=== PATIENT | female | born 1975 | race Caucasian/White ===

== ENCOUNTER 2022-11-21 08:39 | Observation (INO) ==
--- NOTE | 2022-11-02 09:44 | PAT Medication Instructions ---
Medication Instructions Date of Service November 02, 2022 Home Medications ascorbic acid (vitamin C) 1,000 mg tablet (Vitamin C) 1 g PO QAM DO NOT take the morning of surgery ascorbic acid (vitamin C) 1,000 mg tablet (Vitamin C) 1 g PO QAM OTHERWISE NOTHING TO EAT OR DRINK AFTER MIDNIGHT Other Notes If you have any questions please call us at [phone] or [phone] or [phone] or [phone]
--- NOTE | 2022-11-07 11:16 | Anesthesiology Consultation ---
Date of Service November 07, 2022 Assessment & Plan (1) Encounter for pre-operative examination: Chart Review Chart Review: Acceptable Risk for Surgery and Patient seen in Pre Admission Testing - Check test AM DOS Per PAT appt on 11/07/22, patient denies any recent travel or large group activities. Pt is vaccinated for Covid. Will leave to surgeon's discretion if preop Covid testing needed. Educated on importance of using Covid precautions one week prior to surgery Teaching & Discussion Pre-Anesthesia Teaching/Discussion Notes: Instructed NPO after midnight before surgery,except medications with 15 cc of water. Medication instructions provided according to the PAT guidelines. History Surgery Operation Date: 11/21/22 07:45 Proposed Procedures p L5-S1 Decompression, Possible Fusion, Spinal Cord Monitoring - Fernando Beckham DO Height/Weight Height: 5 ft 1 in Weight: 57.5 kg Allergies Allergy/AdvReac Type Severity Reaction Status Date / Time No Known Allergies Allergy Verified 10/27/22 15:37 Medications Home Medications Medication Instructions Recorded Confirmed Last Taken ascorbic acid (vitamin C) 1,000 mg 1 g PO QAM 10/27/22 10/27/22 Unknown tablet (Vitamin C) Past Medical History Medical History Fatty liver Lumbar disc herniation Mild intermittent asthma without complication Well controlled and stable - no inhalers needed Thyroid disease On Methimazole in the past (no current medications) Following with endocrinology- Graves hyperthyroidism TSH and FREE T4 WNL 06/2022 Exercise / Class Metabolic Activity II 4-5 Yardwork/Stairs/Walk up hill (one flight of stairs - no chest pain or SOB ) Past Family History Family History Mother Diabetes Hypertension Gallbladder cancer Father Hypertension Sister No problems noted. Daughter No problems noted. Daughter No problems noted. Other No family history of adverse response to anesthesia Denies family history of Ovarian cancer Prostate cancer Myocardial infarction Breast cancer Colorectal cancer Past Surgical History Surgical History History of appendectomy History of colonoscopy History of right breast biopsy benign calcification Past Anesthesia History No Hx of Anesthesia Complications and No Family Hx of Anesthesia Complications History of PONV No Hx of PONV and No Hx of Motion Sickness Social History Smoking Status: Never smoker Do You Dip or Chew Tobacco: No Hx Alcohol Use: No Hx Substance Use: No substance use type: does not use Review of Systems Hx of snoring (mild)- no hx of sleep study Patient denies chest pain, shortness of breath, dyspnea on exertion, reflux, cough, wheezing, palpitations. No hx of seizures, stroke, MO. No hx of blood clots or blood transfusions Physical Exam Vital Signs VITALS BP 136/85 P 91 TEMP 97.9 SP02 98% RESP 16 Constitutional no acute distress ENMT Mouth: no TMJ clicking Thyromental Distance: > or= 3.5 Finger Breadths (3.5) Mallampati Class: III Neck + limited neck extension Respiratory normal respiratory effort; no respiratory distress Auscultation: lungs clear to auscultation bilaterally; no wheezes Cardiovascular Rate/Rhythm: regular rate and regular rhythm Heart Sounds: no murmur Vessels: no carotid bruit Musculoskeletal Spine: + pain with cervical ROM Extremities: extremities normal to inspection Psychiatric Orientation: alert Lab Results Anesthesia Preop Results Results Anesthesia Widget: WBC 5.21 K/ul (4.8-10.8) 11/07/22 Hgb 13.9 g/dl (12.0-16.0) 11/07/22 Hct 40.2 % (37.0-47.0) 11/07/22 Plt 209 K/uL (130-400) 11/07/22 Na 138 mmol/L (136-145) 11/07/22 K 4.2 mmol/L (3.5-5.1) 11/07/22 Cl 103 mmol/L (98-107) 11/07/22 CO2 28 mmol/L (21-32) 11/07/22 BUN 14 mg/dl (6-23) 11/07/22 Creat 0.61 mg/dl (0.6-1.2) 11/07/22 Glucose Level 98 mg/dl (70-99(Fasting)) 11/07/22 PT 10.8 Seconds (9.0-12.0) 11/07/22 PTT 28.5 Seconds (21.0-31.0) 11/07/22 INR 1.0 (0.9-1.1) 11/07/22 Urine Color Yellow 11/07/22 Urine Appearance Clear (Clear) 11/07/22 Urine pH 7.5 (4.5-7.5) 11/07/22 Urine Specific [place] 1.014 (1.000-1.030) 11/07/22 Urine Protein Negative (Negative) 11/07/22 Urine Glucose (UA) Negative (Negative) 11/07/22 Urine Ketones Negative (Negative) 11/07/22 Urine Blood Negative (Negative) 11/07/22 Urine Nitrite Negative (Negative) 11/07/22 Urine Bilirubin Negative (Negative) 11/07/22 Urine Urobilinogen Negative (Negative) 11/07/22 Urine Leukocyte Esterase Negative (Negative) 11/07/22 Blood Type A Positive 11/07/22 Antibody Screen NEGATIVE 11/07/22 Testing Electrocardiogram Date: 11/07/22 Findings: + NSR @ (85bpm ) Normal EKG per cardio Chest X-Ray Date: 11/07/22 Findings: + NAD COVID-19 Risk Screen Screening Information COVID-19 Screen Date: 11/07/22 Exposure 21 Days Family/Household +COVID Last 21 Days: No Exposure 10 Days Any COVID Exposure Last 10 Days: No Symptoms Last 10 Days Experienced COVID Sx Last 10 Days: No + COVID 0-90 Days COVID + in Last 0-90 Days: No Risk Plan COVID Risk Plan: No Risk Identified Patient Education COVID Preop Screening Education Complete: Yes
[~2022-11-21 08:39] MED LIST: ACETAMINOPHEN 500 MG TAB PO SCH; CeleBREX 200 MG CAP PO SCH; DEXAMETHASONE SOD INJ 4 MG/ML VIAL ONE; GABAPENTIN 300 MG CAP PO SCH; LIDOCAINE 2% MPF LOCAL 5 ML VIAL ONE; LR 15ML/HR IV SCH; MIDAZOLAM HCL 1 MG/ML 2ML VIAL ONE; ONDANSETRON INJ 2 MG/ML 2 ML VIAL ONE; PROPOFOL IV EMULSION 10 MG/ML 20 ML VIAL IV ONE; ROCURONIUM BROMIDE 10 MG/ML 5 ML VIAL IV ONE; ceFAZolin 2000MG 2,000 MG/15 ML SYR IV SCH; fentaNYL citrate PF 100 MCG/2 ML VIAL ONE
[2022-11-21] MEDS ORDERED: ATROPINE SULFATE 0.1 MG/ML 10ML SYR IV PRN (09:29)
[2022-11-21] MEDS ORDERED: ONDANSETRON INJ 2 MG/ML 2 ML VIAL IV PRN ×2 (09:29→13:19)
[2022-11-21] MEDS ORDERED: fentaNYL citrate PF 100 MCG/2 ML VIAL IV PRN (09:29)
[2022-11-21] MEDS ORDERED: HYDROmorphone INJ 1 MG/ML SYRINGE IV PRN ×2 (09:29→13:19)
[2022-11-21] MEDS ORDERED: ePHEDrine sulfate 50 MG/ML AMP IV PRN (09:29)
--- NOTE | 2022-11-21 09:52 | History & Physical Bridge Note ---
Date of Service November 21, 2022 History & Physical Bridge Note I have examined the patient, reviewed the History & Physical and in the interval since the performance of the History & Physical I have noted the following changes of clinical significance: no changes noted
--- NOTE | 2022-11-21 09:52 | History & Physical Report ---
Date of Service November 21, 2022 Assessment & Plan (1) Lumbar disc herniation: Plan: L5-S1 decompression possible fusion History of Present Illness Chief Complaint: Back and leg pain Primary Care Provider: Evelyne Bloom MD This is a 47-year-old female who presents with chronic persistent back and leg pain after failing course of nonoperative care she is here for surgical intervention. Allergies Allergy/AdvReac Type Severity Reaction Status Date / Time No Known Allergies Allergy Verified 11/21/22 09:00 Home Medications Medication Instructions Recorded Confirmed Type ascorbic acid (vitamin C) 1,000 mg 1 g PO QAM 10/27/22 11/21/22 History tablet (Vitamin C) Past Med/Surg History Medical History Fatty liver Lumbar disc herniation Mild intermittent asthma without complication Well controlled and stable - no inhalers needed Thyroid disease On Methimazole in the past (no current medications) Following with endocrinology- Graves hyperthyroidism TSH and FREE T4 WNL 06/2022 Surgical History History of appendectomy History of colonoscopy History of right breast biopsy benign calcification Family History Mother Diabetes Hypertension Gallbladder cancer Father Hypertension Sister No problems noted. Daughter No problems noted. Daughter No problems noted. Other No family history of adverse response to anesthesia Denies family history of Ovarian cancer Prostate cancer Myocardial infarction Breast cancer Colorectal cancer Social History Smoking Status: Never smoker Second Hand Exposure: No; Do You Dip or Chew Tobacco: No; Hx Alcohol Use: No Hx Substance Use: No Preferred Language: [place] Communication Ability: Effective Communication Ability Comment: Pt speaks japanese well Visual Impairment: No Limitations Hearing Ability: Normal Supervisor [employer] Required: No Beliefs That Will Affect Care: None marital status: Current Living Situation: Spouse and Family Current Living Situation Comment: Lives with and 2 daughters current occupational status: employed Feels Safe at Home: Yes Dental Care, Regularly: Yes Physical Activity Frequency: 1-2 Times per Week Assistive Devices: None Physical Exam Physical Exam: Patient is alert and oriented Heart regular rhythm Lungs clear Results & Data Results & Data Vital Signs (Past 12 Hours) Vital Signs Temp Pulse Resp BP Pulse Ox O2 Del Method 11/21/22 09:06 36.7 C 93 H 20 151/89 H 98 Room Air
[2022-11-21] MEDS ORDERED: ceFAZolin 330 MG/ML 1 GM VIAL ONE (10:02)
[2022-11-21] MEDS ORDERED: BUPIVACAINE/EPINEPHRINE 0.25% 1:200,000 30 ML VIAL ONE (10:02)
[2022-11-21] MEDS ORDERED: fentaNYL citrate PF 100 MCG/2 ML VIAL ONE (10:49)
[2022-11-21] MEDS ORDERED: FLOSEAL HEMOSTATIC MATRIX 10ML TOP ONE (11:01)
[2022-11-21] MEDS ORDERED: SURGICEL ABSORB HEMOSTAT 2IN X 14IN TOP ONE (11:43)
--- NOTE | 2022-11-21 11:52 | Operative Report ---
Post Operative Report Pre & Post Diagnosis Operation Date: 11/21/22 10:05 Pre-Op Diagnosis: (1) Lumbar disc herniation Post-Op Diagnosis: (1) Lumbar disc herniation I identified the patient and participated in the time-out.: Yes Procedure Operation Date: 11/21/22 10:05 Actual Procedures #1 lumbar decompression bilateral medial facetectomies and foraminotomies L5-S1. #2 posterior spinal fusion L5-S1. #3 placed posterior instrumentation L5-S1. #4 interbody fusion L5-S1. #5 placement of Spira 12 x 26 mm at L5-S1. #6 placement locally harvested morselized autograft in the posterior gutters. #7 placement of I factor amount of the talus in the interbody space and posterior lateral gutters. Surgeon Fernando Beckham, Adaptive Physical Education Teacher Na Calloway Estimated Blood Loss 50 Findings Consistent with Post-Op Diagnosis Specimens None Indications This is a 47-year-old female who presents above-mentioned diagnosis after failing course of nonoperative care she is here for surgical invention. Description of Procedure Patient was met with identified informed consent obtained. Patient was then taken to the operative suite underwent ablation placed in a prone position on the [facility] top Tam frame. All bony promises well-padded eyes inspected to ensure no external pressure placed upon the. This point the lumbar spine was prepped and draped in a sterile fashion. Sharp dissection with the assistance of Bovie cautery to form down to and exposing the lamina of L5. From caudal to cephalad fashion complete laminectomy of L5 was performed including bilateral medial facetectomies and foraminotomies addressing significant stenosis particularly along the right neuroforamen requiring complete facetectomy to adequately decompress the nerve roots. Subsequently fusion was necessary in light of the iatrogenic instability and pedicle screws were placed in L5 and S1 levels bilaterally with assistance of fluoroscopy. By way of a transforaminal approach and right complete discectomy of L5-S1 was performed endplates curetted to subcortical mean bone and a 12 x 26 mm Spira cage filled with I factor tapped position. The rods then locked in final position bilaterally. The transverse processes of L5 and sacral ala burred to subcortical bleeding bone. I factor amount of the test and locally harvested morselized graft was placed in the posterior gutters. 15 round TEMI drain inserted. The incision was then closed with 1 Vicryl the fascia 2-0 Vicryl subcutaneously and 4 Monocryl for final skin closure. Steri-Strip sterile dressings placed. Patient awakened taken to PACU stable condition. Please note spinal cord monitoring was utilized at the procedure no changes noted. Lastly Na Calloway is present at the entire surgery and while the patient positioning complex portions of the surgery and final skin closure. I attest to the content of the Intraoperative Record and any orders documented therein. Any exceptions are noted below.
--- NOTE | 2022-11-21 12:55 | Anesthesiology Progress Note ---
Date of Service November 21, 2022 Anesthesia Post Procedure Vital Signs Vital Signs: Temp Pulse Resp BP Pulse Ox O2 Del Method O2 Flow Rate 11/21/22 12:50 84 14 113/76 98 Room Air 11/21/22 12:40 75 14 106/69 96 Room Air 11/21/22 12:30 79 14 109/70 97 Room Air 11/21/22 12:20 78 15 110/74 100 Oxymask 6 11/21/22 12:13 97.0 F L 98 H 12 122/71 99 Oxymask 6 11/21/22 09:06 98.1 F 93 H 20 151/89 H 98 Room Air Pain Intensity Lower Back: Pain Intensity: 6 Transfer of Care Handoff Completed per policy Notes Mental Status: alert / awake / arousable and participated in evaluation Patient Amnestic to Procedure: Yes Nausea / Vomiting: adequately controlled Pain: adequately controlled Airway Patency, RR, SpO2: stable & adequate BP & HR: stable & adequate Hydration State: stable & adequate Anesthetic Complications: no major complications apparent and Pt Satisfied with anesthetic care
--- NOTE | 2022-11-21 13:00 | Fluoroscopy Report ---
INTRAOPERATIVE RADIOGRAPHS CLINICAL HISTORY: L5-S1 spinal fusion. Fluoro time: 27 seconds Ka,r: 15.5 mGy FINDINGS: 2 spot fluoroscopic views of the lumbar spine are presented. There has been discectomy at L 5-S1 with laminectomy and posterior fusion at this level. Interpedicular screws are in place. The ort hopedic hardware appears intact. IMPRESSION: Intraoperative images from L5-S1 spinal fusion as above. Electronically signed by: Lakhwinder Rollins M.D. 11/21/2022 12:59 PM
[2022-11-21] MEDS ORDERED: hydrOXYzine HCl 25 MG TAB PO PRN (13:19)
[2022-11-21] MEDS ORDERED: ONDANSETRON 4 MG OD TAB PO PRN (13:19)
[2022-11-21] MEDS ORDERED: HYDROmorphone INJ 0.5 MG/0.5 ML SYR IV PRN (13:19)
[2022-11-21] MEDS ORDERED: oxyCODONE HCL IR 5 MG TAB (IMMEDIATE RELEASE) PO PRN (13:19)
[2022-11-21] MEDS ORDERED: FAMOTIDINE 20 MG TAB PO PRN (13:19)
[2022-11-21] MEDS ORDERED: DO NOT ADMINISTER FLU VACCINE PRN (13:19)
[2022-11-21] MEDS ORDERED: LORazepam 0.5 MG TAB PO PRN (13:19)
[2022-11-21] MEDS ORDERED: bisacodyL 10 MG SUPP PR PRN (13:19)
[2022-11-21] MEDS ORDERED: PROMETHAZINE HCL 12.5 MG in SODIUM CHLORIDE 0.9% 50 ML IV PRN (13:19)
[2022-11-21] MEDS ORDERED: DO NOT ADMINISTER PNEUMOCOCCAL VACCINE PRN (13:19)
[2022-11-21] MEDS ORDERED: ALUMINUM/MAGNESIUM SUSP 30 ML UDC PO PRN (13:19)
[2022-11-21] MEDS ORDERED: traMADol HCL 50 MG TABLET PO PRN (13:19)
[2022-11-21] MEDS ORDERED: LORazepam 2 MG/1 ML VIAL IV PRN (13:19)
[2022-11-21] MEDS ORDERED: SOD PHOSPHATE/SOD BIPHOSPHATE ENEMA 132 ML BTL PR PRN (13:19)
[2022-11-21] MEDS ORDERED: diphenhydrAMINE Capsule 25 MG CAP PO PRN (13:19)
[2022-11-21] MEDS ORDERED: NALOXONE HCL 0.4 MG/1 ML VIAL/CARP IV PRN (13:19)
[2022-11-21] MEDS ORDERED: MAGNESIUM HYDROXIDE SUSP 30 ML UDC PO PRN (13:19)
[2022-11-21] MEDS ORDERED: ACETAMINOPHEN 1,000 MG/100 ML VIAL IV PRN (13:19)
[2022-11-21] MEDS ORDERED: METOCLOPRAMIDE HCL INJ 5 MG/ML 2 ML VIAL IV PRN (13:19)
[2022-11-21] MEDS: LACTATED RINGER'S 1,000 ML IV SCH ×2 (14:08→23:19)
[2022-11-21] MEDS: ceFAZolin 1000MG 1,000 MG/7.5 ML SYR IV SCH (17:43)
[2022-11-21] MEDS: DOCUSATE SODIUM/SENNA 50/8.6MG TAB PO SCH (20:57)
[2022-11-22] MEDS: ceFAZolin 1000MG 1,000 MG/7.5 ML SYR IV SCH (01:05)
[2022-11-22] MEDS: ACETAMINOPHEN 500 MG TAB PO PRN ×2 (04:48→14:06)
[2022-11-22] MEDS: POLYETHYLENE (MIRALAX) 17 GM PACK PO SCH ×3 (05:24→17:03)
[2022-11-22 07:24] LABS: BUN Creatinine Ratio 20.3 (10-20); Calcium 8.7 mg/dl (8.6-10.3); Creatinine Clr Calc Pharmacy 94.2 ml/min; Est GFR (African American) 124.7 ml/min; Est GFR (Non-African American) 107.6 ml/min; Potassium 3.7 mmol/L (3.5-5.1)
[2022-11-22] MEDS: dexAMETHasone 6 MG in SYRINGE 0 ML IV SCH (09:01)
[2022-11-22 10:32] LABS: Basophils # (auto) 0.02 K/uL (0-0.2); Basophils % (auto) 0.2 %; Hematocrit (blood only) 32.6 % (37.0-47.0); Hemoglobin 11.3 g/dl (12.0-16.0); Immature Granulocytes # (auto) 0.04 K/uL (0.01-0.20); Immature Granulocytes % (auto) 0.3 %; Lymphocytes # (auto) 1.42 K/uL (1.2-3.4); Lymphocytes % (auto) 12.3 %; Mean Corpuscular Hemoglobin 31.6 pg (25.0-34.0); Mean Corpuscular Hgb Conc 34.7 g/dL (32.0-36.0); Mean Corpuscular Volume 91.1 fL (80.0-100.0); Mean Platelet Volume 10.8 fL (9.4-12.4); Monocytes % (auto) 7.8 %; Neutrophils # (auto) 9.13 K/uL (1.40-6.50); Neutrophils % (auto) 79.4 %; Platelet Count 188 K/uL (130-400); RDW Coefficient of Variation 12.1 % (11.5-14.5); RDW Standard Deviation 40.2 fL (36.4-46.3); Red Blood Count 3.58 M/uL (4.20-5.40); White Blood Count 11.51 K/ul (4.8-10.8)
--- NOTE | 2022-11-22 12:56 | Orthopedic Progress Note ---
Date of Service November 22, 2022 Assessment & Plan (1) Lumbar disc herniation: Plan: At this time we will continue physical therapy monitor TEMI output hopefully discharge home in the next few days. Admission and Anticipated Discharge Date Admission Date: November 21, 2022 Subjective Back pain controlled leg pain markedly improved Physical Exam Physical Exam: Patient is in bed. She is comfortable. Is good strength testing. Results & Data Vital Signs (Past 12 Hours) Vital Signs Temp Pulse Pulse Pulse Resp BP BP 11/22/22 11:30 36.7 C 88 16 117/74 11/22/22 07:23 36.5 C 93 H 16 118/73 11/22/22 02:56 36.7 C 100 H 16 123/74 Pulse Ox O2 Del Method 11/22/22 11:30 97 Room Air 11/22/22 07:23 96 Room Air 11/22/22 02:56 97 Room Air
[2022-11-22] MEDS: DOCUSATE SODIUM/SENNA 50/8.6MG TAB PO SCH (21:15)
[2022-11-23] MEDS: POLYETHYLENE (MIRALAX) 17 GM PACK PO SCH ×2 (00:58→06:09)
[2022-11-23] MEDS: ACETAMINOPHEN 500 MG TAB PO PRN (00:58)
[2022-11-23] MEDS: dexAMETHasone 6 MG in SYRINGE 0 ML IV SCH (08:13)
--- NOTE | 2022-11-23 10:52 | Discharge Summary ---
Date of Service November 23, 2022 Admission HPI Per Admitting Provider This is a 47-year-old female who presents with chronic persistent back and leg pain after failing course of nonoperative care she is here for surgical intervention. Principal Diagnosis Lumbar stenosis with radiculopathy Discharge Data Allergies Allergy/AdvReac Type Severity Reaction Status Date / Time No Known Allergies Allergy Verified 11/21/22 09:00 Procedures Performed Operation Date: 11/21/22 10:05 Actual Procedures p L5-S1 Decompression Fusion, Spinal Cord Monitoring(Not Applicable) - Fernando Beckham DO Ordered Studies 11/21/22 10:05 FL lumbar spine 2-3V Routine Hospital Course (1) Lumbar disc herniation: Patient underwent lumbar decompression fusion tolerated this well and taken to orthopedic for postoperative. Postop day 1 she was up and ambulating progress postop day #2. TEMI drain decreasing appropriately. Pain well controlled. Extra strength testing. Separately discharged home. Discharge orders instructions found in chart for further review. Total Time Total Time Spent Total Time Spent (In Minutes): 20 minutes Discharge Plan Discharge Items Patient Disposition: Home - Self-Care Reason For Visit: Radiculopathy, Lumbar REgion Discharge Diagnosis: lumbar radiculopathy Activity: As commented below Non-emergency contact: Primary Care Provider Call non-emergency contact if: you have any medication questions Follow-up/Referrals: Evelyne Bloom MD [Primary Care Provider] - Diet: Regular Addtl Attending Provider Instructions: ACTIVITY RECOMMENDATIONS: SELF CARE INSTRUCTIONS AFTER THORACIC/LUMBAR FUSIONS 1. You may walk to your tolerance. It is good exercise for your legs and back. Expect some back and intermittent leg aches and pains. 2. You may perform "counter-top" level activities (make a sandwich, toñito with a project, etc.). 3. No bending or lifting of more than 10 pounds or back twisting of any nature (roll like a log when turning in bed). 4. You may ride in a car for 20-30 minutes at a time. No driving until after your first visit with your doctor. 5. Frequent changes of position and restricting sitting to 30 minutes at a time will help limit the amount of back spasms and stiffness you may experience. 6. You may discontinue the use of ambulatory aids (cane, crutches, etc.) once your strength and confidence allow. 7. You may donor services coordinator the shower and let water strike your incision when you arrive home at least once daily. Do not take a tub bath, sit in a hot tub or go into a swimming pool until after your first recheck in the office. SPECIAL CARE INSTRUCTIONS: VERY IMPORTANT TO READ AND REVIEW A. Your surgical incision has been closed with a cosmetic suture under the skin that will dissolve in about 6 weeks. In 14 days, you can use a pair of clean scissors and cut the suture that is left outside of the skin at the ends of your incision. 1. The small skin tapes can be removed 7 days after surgery if they have not fallen off by that point. 2. You may keep the wound open to air as much as possible to promote healing after post-op day number 5 unless told otherwise by your doctor. 3. If you think the wound looks like it is becoming infected (redness or worsening drainage) and/or you are experiencing fever, chill or worsening back pain and muscle spasms, contact the office so that we may evaluate you as soon as possible. B. Complications are uncommon, but please contact us if you have any signs or symptoms of: 1. wound infection (fever higher than 102.5 degrees F, redness, separation of wound, drainage, or increasing pain from the incision) 2. blood clots in legs (pain, swelling, redness and warmth in legs) 3. urinary tract infection (fever higher than 102.5 degrees F, burning upon urination or increased frequency of urination) 4. nerve problems (inability to walk on your toes or heels, numbness, loss of bowel or bladder control) 5. any other symptoms that concern you C. Please call the office at if you have any concerns or questions about your operation or recovery. D. No smoking! Smoking drastically decreases the chance of a solid fusion. E. Do not take any anti-inflammatory medications (Indocin, Advil, Motrin, Aspirin, Naprosyn, etc.) as these may inhibit the chance of a solid fusion. Tylenol is okay to take for pain. MANAGING PAIN AFTER SPINAL SURGERY 1. Narcotic medication is intended for short-term use and will be provided for surgical pain. Surgical pain usually lasts for a period of 4-6 weeks. Narcotic medication includes Percocet, Vicodin, Darvocet, Tylenol #3 or Lortab. 2. Longer-term pain is more appropriately treated with non-narcotic medication such as Tylenol ES. 3. Muscle spasm is not appropriately treated with narcotics. Muscle relaxers such as Soma, Flexeril or Skelaxin can be used along with Tylenol ES. 4. Remember that we all live with some "aches and pains". This is not unusual or uncommon after an injury or as we get older. a. Back pain is expected and may include muscle spasms for 4 to 6 weeks after surgery. The pain should gradually improve. If the pain worsens for no apparent reason, please contact the office. b. Intermittent leg pain may also be experienced and should not be concerned about unless it worsens for no apparent reason. If so, please contact the office. 5. We will provide appropriate medication within the normal guidelines of their prescribed use. We will also be very cautious and aware of potential abuse and extended duration of patients' medication needs. a. Pain medications are for your comfort and to assist with sleep and rest so that the tissue can heal. They are not provided in order to return to normal activity and should not be used through the day. To do so or worsening pain at night can result from ongoing tissue damage and development of tolerance to the prescribed medicine. 6. Please allow 2-3 days to process refills. Prescriptions will not be mailed but must be picked up at the office. FOLLOW UP VISIT: Keep your scheduled follow-up appointment. Any questions, please call the office at . Pending Studies at Discharge: No Stand-Alone Forms: My [facility] [place], Smoking Cessation Medications and DC Order Prescriptions: New tramadol 50 mg tablet 50 mg PO Q6H PRN (Reason: pain, moderate) Qty: 30 0RF oxycodone 5 mg tablet 5 mg PO DAILY PRN (Reason: pain) Qty: 30 0RF Continued ascorbic acid (vitamin C) [Vitamin C] 1,000 mg Tablet 1 g PO QAM Discharge Orders: Discharge Order (Routine); Ordered 11/23/22 Ordered By: Fernando Beckham Admission Data Admit Date/Time: 11/21/22 11:54 Attending Provider: Fernando Beckham Admit Provider: Fernando Beckham Primary Care Provider: Evelyne Bloom
== END 2022-11-23 11:53 | disposition home or self-care (01) ==
LOC: ASU 08:39 → INTOOBSV 11:54 → 3E 11:54
DX: M51.27 Other intervertebral disc displacement, lumbosacral region